=== PATIENT | female | born 1975 | race Caucasian/White ===

== ENCOUNTER 2022-08-17 12:12 | Emergency (ER) | payer MEDICAID ==
--- NOTE | 2022-08-17 12:22 | ERPHSYRPT ---
- History of Present Illness Time Seen by Provider: 08/17/22 12:21 Source: patient Exam Limitations: no limitations Physician History: This is a 47-year-old overweight white female who on 08/14/2022 was pushing her great nephew on a swing when she stepped back and tripped over stake in the ground twisting her right ankle and falling onto her outstretched left wrist. She has been icing it and there is been persistent pain in her left wrist and right foot and ankle with associated swelling and bruising of the right foot and ankle. She is able to bear weight but it hurts to do so and wants to be sure she has her has not fractured her ankle or her foot. Method of Injury: fell Occurred: days ago (3) Quality: constant, aching Lower Extremities Pain: foot: right, ankle: right, other: left Modifying Factors: Improves With: movement (Left wrist) Associated Symptoms: other (Can bear weight but hurts to do so) Allergies/Adverse Reactions: cefaclor [From Ceclor] Allergy (Intermediate, Verified 08/17/22 12:25) Rash Travel Risk - International Travel Have you traveled outside of the country in past 3 weeks: No - Coronavirus Screening Are you exhibiting any of the following symptoms?: No Close contact with a COVID-19 positive Pt in past 14-21 Days: No - Review of Systems Constitutional: No Symptoms Eyes: No Symptoms Ears, Nose, & Throat: No Symptoms Respiratory: No Symptoms Cardiac: No Symptoms Abdominal/Gastrointestinal: No Symptoms Genitourinary Symptoms: No Symptoms Musculoskeletal: Fall, Injury (Right foot and ankle, left wrist) Skin: No Symptoms Neurological: No Symptoms Psychological: No Symptoms Endocrine: No Symptoms Hematologic/Lymphatic: No Symptoms Immunological/Allergic: No Symptoms All Other Systems: Reviewed and Negative - Past Medical History Pertinent Past Medical History: Yes - Past Surgical History Past Surgical History: Yes - Nursing Vital Signs Nursing Vital Signs: Initial Vital Signs Temperature 97.3 F 08/17/22 12:18 Pulse Rate 92 H 08/17/22 12:18 Respiratory Rate 18 08/17/22 12:18 Blood Pressure 142/96 08/17/22 12:18 O2 Sat by Pulse Oximetry 94 L 08/17/22 12:18 Pain Scale Pain Intensity 8 - Physical Exam General Appearance: no apparent distress, alert, anxiety, obese Eyes, Ears, Nose, Throat Exam: normal ENT inspection, moist mucous membranes Neck Exam: normal inspection, non-tender, supple, full range of motion Cardiovascular/Respiratory Exam: chest non-tender, no respiratory distress Gastrointestinal/Abdominal Exam: non-tender Back Exam: normal inspection, normal range of motion, No CVA tenderness, No vertebral tenderness Hips Exam: bilateral: non-tender, normal inspection, normal range of motion, no evidence of injury Legs Exam: bilateral leg: non-tender, normal inspection, normal range of motion, no evidence of injury Knees Exam: bilateral knee: non-tender, normal inspection, normal range of motion, no evidence of injury Ankle Exam: right ankle: ecchymosis, soft tissue tenderness, swelling, left ankle: non-tender, normal inspection, normal range of motion, no evidence of injury Foot Exam: right foot: ecchymosis, soft tissue tenderness, swelling, left foot: non-tender, normal inspection, normal range of motion, no evidence of injury, other (Patient has tenderness left wrist. There is full range of motion and is neurovascularly intact. No deformity present) Neuro/Tendon Exam: normal sensation, normal motor functions, normal tendon functions, responds to pain, no evidence tendon injury Mental Status Exam: alert, oriented x 3, cooperative Skin Exam: normal color, warm, dry SpO2 Interpretation: normal O2 Delivery: Room Air - Course Nursing assessment & vital signs reviewed: Yes Ordered Tests: Active Orders 24 hr Category Date Time Status Adarsh Bandage Application -[facility] STAT Care 08/17/22 13:00 Active Crutches STAT Care 08/17/22 13:00 Active ANKLE (3 VIEWS) Stat Exams 08/17/22 12:27 Taken FOOT (MINIMUM 3 VIEWS) Stat Exams 08/17/22 12:27 Taken WRIST (MIN 3 VIEWS) Stat Exams 08/17/22 12:27 Taken - Progress Progress: improved, pain not gone completely Progress Note: 08/17/22 12:54 X-ray left wrist shows no acute fracture or dislocation. X-ray right ankle shows no acute fracture or dislocation. X-ray right foot shows minimally displaced fracture distal metatarsals #3 4 and 5 Counseled pt/family regarding: diagnosis, need for follow-up, rad results - Departure Departure Disposition: Home Clinical Impression: Metatarsal fracture Condition: Stable Critical Care Time: No Referrals: ABDELFATTAH,ROD, DPM [ACTIVE STAFF] - Follow up/PCP as directed Additional Instructions: Nonweightbearing. Use crutches. Ice pack/bath 3 times a day for the next 48 hours. Use ibuprofen 600 mg orally with food 3 times a day if there are no contraindications for you to take this medication. Elevate the right foot and ankle above the level of your heart. Wear the Adarsh wrap for compression. Follow-up with Dr. Granados (podiatry) by phone on 08/19/2022 to make arrangements for follow-up appointment. Another option is to follow-up with the [facility] orthopedic clinic Friday through Friday 8 AM to 10 AM. It is a walk-in clinic and you do not need an appointment to follow-up. Prescriptions: Oxycodone HCl/Acetaminophen [Percocet 5-325 mg Tablet] 1 each PO Q8H PRN PRN #8 tablet MDD 3 PRN Reason: Moderate To Severe Pain
[2022-08-17 13:09] VITALS: BP 138/72; PULSE 88; O2SAT 98
--- NOTE | 2022-08-17 20:12 | XRAY ---
Indication: Pain and bruising following fall. Comparison: None 3 view right ankle demonstrates anterior lateral soft tissue swelling and small plantar heel spur. No other bony, articular, or soft tissue abnormalities.
--- NOTE | 2022-08-17 20:12 | XRAY ---
Indication: Pain following fall. Comparison: None 3 view left wrist demonstrates two 5th metacarpal orthopedic screws and radiocarpal joint space narrowing. No other bony, articular, or soft tissue abnormalities.
--- NOTE | 2022-08-17 20:15 | XRAY ---
Indication: Pain and bruising following fall. Comparison: None 3 nonweightbearing views right foot demonstrates minimally displaced oblique fracture distal shaft 5th metatarsal, minimally angulated fracture distal shaft 4th metatarsal, nondisplaced fracture distal shaft 3rd metatarsal, and soft tissue swelling. Incidental small plantar spur. Remaining foot unremarkable.
== END 2022-08-17 13:27 | disposition home or self-care (01) ==
LOC: ED 12:12
DX: S92.331A Displaced fracture of third metatarsal bone, right foot, initial encounter for closed fracture (principal); S92.341A Displaced fracture of fourth metatarsal bone, right foot, initial encounter for closed fracture; S92.351A Displaced fracture of fifth metatarsal bone, right foot, initial encounter for closed fracture; W01.0XXA Fall on same level from slipping, tripping and stumbling without subsequent striking against object, initial encounter; M25.571 Pain in right ankle and joints of right foot; M25.532 Pain in left wrist; Z79.891 Long term (current) use of opiate analgesic
CPT/HCPCS: 73110; 73610; 73630; 99283

== ENCOUNTER 2024-12-12 17:19 | Emergency (ER) | payer MEDICAID ==
[2024-12-12 18:23] VITALS: TEMP 98.1
--- NOTE | 2024-12-12 18:29 | ERPHSYRPT ---
- History of Present Illness Time Seen by Provider: 12/12/24 18:26 Source: patient Exam Limitations: no limitations Patient Subjective Stated Complaint: pt fell in her living room from slipping on water and injured her left forearm above her wrist Triage Nursing Assessment: Pt was brought to the ER by her boyfriend, bradycardic, rates pain as 8/10, pulses normal, skin n/w/d, left wrist swollen and deformed, pt has a hx of a left broken wrist but she states that it feels like it's above the wrist, denies hitting head, denies LOC, denies N&V Physician History: 49-year-old female presents to our ED for evaluation of left wrist and distal forearm pain. Patient reports she was at home doing some cleaning. Patient slipped on water and landed onto her left outstretched arm. Injury occurred just prior to arrival. Pain described as an ache that is localized. No BHT or LOC. Cervical spine cleared clinically. Patient voices no other complaints or concerns at this time. Portions of this note were created with voice recognition technology. There may be grammatical, spelling, punctuation or sound alike errors Timing/Duration: today Severity: moderate Modifying Factors: Improves With: movement Associated Symptoms: denies symptoms Allergies/Adverse Reactions: cefaclor [From Ceclor] Allergy (Intermediate, Verified 12/12/24 18:24) Rash Hx Tetanus, Diphtheria Vaccination/Date Given: Yes Hx Influenza Vaccination/Date Given: Yes Hx Pneumococcal Vaccination/Date Given: No Travel Risk - International Travel Have you traveled outside of the country in past 3 weeks: No - Emerging Infectious Disease Are you exhibiting symptoms associated with any current EIDs: No - Review of Systems Constitutional: No Symptoms, No Fever, No Chills Eyes: No Symptoms Ears, Nose, & Throat: No Symptoms Respiratory: No Symptoms, No Cough, No Dyspnea Cardiac: No Symptoms, No Chest Pain, No Edema, No Syncope Abdominal/Gastrointestinal: No Symptoms, No Abdominal Pain, No Nausea, No Vomiting, No Diarrhea Genitourinary Symptoms: No Symptoms, No Dysuria Musculoskeletal: No Symptoms, No Back Pain, No Neck Pain Skin: No Symptoms, No Rash Neurological: No Symptoms, No Dizziness, No Focal Weakness, No Sensory Changes Psychological: No Symptoms Endocrine: No Symptoms Hematologic/Lymphatic: No Symptoms Immunological/Allergic: No Symptoms All Other Systems: Reviewed and Negative - Past Medical History Pertinent Past Medical History: Yes - Past Surgical History Past Surgical History: Yes Other Surgical History: hysterectomy. spleen. left hand - Female History Hx Now: No (hysterectomy) - Social History Smoking Status: Current every day smoker How long have you smoked: years Exposure to second hand smoke: Yes Drug Use: none - Social Determinants of Health Will the patient participate in the screening: Yes Do you worry about a steady place to live?: No Do you have any problems with any of the following?: No known problems In the past 12 months,have you had to go without utilities?: No Transportation Issues: No Has anyone in your support network made you feel unsafe?: No Have you or anyone in your house had to go w/o enough food: No - Nursing Vital Signs Nursing Vital Signs: Initial Vital Signs Temperature 98.1 F 12/12/24 18:14 Pulse Rate 52 L 12/12/24 18:14 Blood Pressure 140/61 12/12/24 18:14 O2 Sat by Pulse Oximetry 99 12/12/24 18:14 Pain Scale Pain Intensity 8 - Physical Exam General Appearance: no apparent distress, alert Eye Exam: PERRL/EOMI, eyes nml inspection Ears, Nose, Throat Exam: normal ENT inspection, TMs normal, pharynx normal, moist mucous membranes Neck Exam: normal inspection, non-tender, supple, full range of motion Respiratory Exam: normal breath sounds, lungs clear, airway intact, No respiratory distress Cardiovascular Exam: regular rate/rhythm, normal heart sounds, normal peripheral pulses Gastrointestinal/Abdomen Exam: soft, normal bowel sounds, No tenderness, No mass Back Exam: normal inspection, normal range of motion, No CVA tenderness, No vertebral tenderness Extremity Exam: normal inspection, normal range of motion, pelvis stable, other (Left wrist limited range of motion secondary to pain. There is some bruising on the volar aspect of her left distal forearm just proximal to the wrist. The involved digits neurovascular tact distally compartments are soft cap refill less than 2 seconds. Overlying soft tissue intact. No open or d) Neurologic Exam: alert, oriented x 3, cooperative, normal mood/affect, sensation nml, No motor deficits Skin Exam: normal color, warm, dry, No rash Lymphatic Exam: No adenopathy SpO2 Interpretation: normal SpO2: 99 O2 Delivery: Room Air - Course Nursing assessment & vital signs reviewed: Yes - Radiology Exams Wrist X-ray Interpretation: Teleradiologist Report (Distal radius fracture, metaphysis) Forearm X-ray Interpretation: Teleradiologist Report (Distal radius fracture, metaphysis) Ordered Tests: Active Orders 24 hr Category Date Time Status FOREARM Stat Exams 12/12/24 18:40 Completed WRIST (MIN 3 VIEWS) Stat Exams 12/12/24 18:40 Completed - Progress Progress: improved Progress Note: 49-year-old female presents to emergency department for evaluation of pain to her left wrist post fall. Physical exam reveals some swelling and tenderness at the left wrist near the distal radius. X-ray confirms an impacted fracture of the metaphysis of the left distal radius. The fracture is closed. The involved extremities neurovascular intact distally compartments are soft cap refill less than 2 seconds. Patient received Toradol for pain control. Patient's involved extremity was placed in a sugar-tong splint and sling. Patient referred to orthopedic clinic for follow-up. No indication for further workup at this time. Patient has no other complaints. Portions of this note were created with voice recognition technology. There may be grammatical, spelling, punctuation or sound alike errors Complexity of problem addressed is moderate acute complicated no critical care time. Complex of data reviewed and analyzed is moderate. Test ordered test reviewed results analyzed and correlated clinically with history and physical exam. Risk of complication and or risk of morbidity/mortality of patient management is moderate. A prescription for Toradol forwarded to patient's pharmacy. Vital stable. Time spent to discharge patient approximately 15 minutes. Plan of care established for shared decision making. No social determinants of health present to impede follow-up. Portions of this note were created with voice recognition technology. There may be grammatical, spelling, punctuation or sound alike errors 12/12/24 20:25 12/12/24 20:26 Counseled pt/family regarding: diagnosis, need for follow-up, rad results - Departure Departure Disposition: Home Clinical Impression: Fall, Wrist pain, Distal radius fracture, left Condition: Stable Critical Care Time: No Referrals: DOCTOR,NO FAMILY [Primary Care Provider] - Follow up/PCP as directed Additional Instructions: Discharge/Care Plan BRY GREGG was seen on 12/12/24 in the Emergency Room. The patient was c ounseled regarding Diagnosis,Lab results, Imaging studies, need for follow up and when to return to the Emergency Room. Prescriptions given: Discharge Note I have spoken with the patient and/or caregivers. I have explained the patient's condition, diagnosis and treatment plan based on the information available to me at this time. I have answered the patient's and/or caregiver's questions and addressed any concerns. The patient and/or caregivers have as good understanding of the patient's diagnosis, condition and treatment plan as can be expected at this point. The vital signs have been stable. The patient's condition is stable and appropriate for discharge from the emergency department. The patient will pursue further outpatient evaluation with the primary care physician or other designated or consulting physician as outlined in the discharge instructions. The patient and/or caregivers are agreeable to this plan of care and follow-up instructions have been explained in detail. The patient and/or caregivers have received these instruction. The patient/and or caregivers are aware that any significant change in condition or worsening of symptoms should prompt an immediate return to this or the closest emergency department or call 911. Prescriptions: Ketorolac Trometh 10 mg Tab [TORAdol 10 MG TABLET] 10 mg PO TID 5 Days #15 tablet Outpatient Orders: Ortho Referral Time Frame: 1 Day, Facility: [facility], Locatio n: ORTHO CLINIC
[2024-12-12 19:33] VITALS: BP 121/73; PULSE 51
--- NOTE | 2024-12-12 20:04 | XRAY ---
CLINICAL HISTORY: pain/fall COMPARISON: No prior studies available for comparison. TECHNIQUE: X-ray images of the left forearm were obtained in anteroposterior (AP) and lateral projections. FINDINGS: Bone Structure: Impacted extraarticular fracture of distal radius metaphysis with no significant displacement. Otherwise, bone structure is normal and aligned. No evidence of dislocation. Two in-place screws fixing the 5th metacarpal shaft. Joint Spaces: Elbow and wrist joint spaces are normal. No evidence of joint effusion or subluxation. Soft Tissues: Periarticular soft tissue edema related to wrist. No soft tissue calcifications or foreign bodies noted. Additional Findings: No signs of osteoarthritis, periosteal reaction, or other abnormalities. IMPRESSION: Impacted extraarticular fracture of distal radius metaphysis with no significant displacement. Disclaimer: A subtle bone abnormality or fracture may not be readily apparent on X-rays, thus clinical correlation and further imaging, including follow-up CT, MRI, or follow-up X-rays, are advised as needed. Electronically Signed by: Mona Lai MD. (12/12/2024 19:59:33 EST)
--- NOTE | 2024-12-12 20:06 | XRAY ---
CLINICAL HISTORY: pain/fall COMPARISON: No prior studies are available for comparison. TECHNIQUE: X-ray images of the left wrist were obtained in anteroposterior (AP), lateral, and oblique projections. FINDINGS: Bone Structure: Impacted extraarticular fracture of distal radius metaphysis with no significant displacement. Other bone structures are normal and aligned. No evidence of dislocation. No osseous lesions or abnormalities identified. Two in-place screws are transfixing the 5th metacarpal shaft. Joint Spaces: Joint spaces are normal. No evidence of joint subluxation. Soft Tissues: Periarticular soft tissue edema related to wrist. No soft tissue calcifications or foreign bodies noted. Additional Findings: No signs of osteoarthritis, bone spurs, lytic or sclerotic lesions. IMPRESSION: 1. Impacted extraarticular fracture of distal radius metaphysis with no significant displacement. 2. Two in place screws are transfixing the 5th metacarpal shaft. Disclaimer: A subtle bone abnormality or fracture may not be readily apparent on X-rays, thus clinical correlation and further imaging including follow-up CT, MRI, or follow-up X-rays are advised as needed. Electronically Signed by: Mona Lai MD. (12/12/2024 20:01:11 EST)
[2024-12-12 20:24] VITALS: O2SAT 99
[2024-12-12] MEDS ORDERED: TORAdol 30 mg Injection ONE (20:28)
[2024-12-12] MEDS: TORAdol 30 mg Injection IM ONE (20:29)
== END 2024-12-12 20:57 | disposition home or self-care (01) ==
LOC: ED 17:19
DX: S52.502A Unspecified fracture of the lower end of left radius, initial encounter for closed fracture (principal); W01.0XXA Fall on same level from slipping, tripping and stumbling without subsequent striking against object, initial encounter; Y93.E9 Activity, other interior property and clothing maintenance; Y92.008 Other place in unspecified non-institutional (private) residence as the place of occurrence of the external cause; M25.532 Pain in left wrist; Z79.899 Other long term (current) drug therapy; Z72.0 Tobacco use
CPT/HCPCS: 29125; 73090; 73110; 96372; 99283; J1885

== ENCOUNTER 2025-08-05 23:22 | Emergency (ER) | payer OTHER ==
[2025-08-05 23:40] VITALS: TEMP 98.5
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
[2025-08-05] MEDS ORDERED: DUONEB 0.5-3 MG/3 ml Neb IH ONE ×2 (23:46→23:55)
[2025-08-05 23:54] LABS: BASOPHIL % 0.5 % (0.1-1.2); Basophil (Absolute #) 0.07 x10^3/uL (0.01-0.08); Eosinophil (Absolute #) 0 x10^3/uL (0.04-0.36); Hematocrit 39.9 % (34.1-44.9); Hemoglobin 12.1 g/dL (11.2-15.7); IMMATURE GRAN # 0.05 x10^3u/L (0.001-0.031); IMMATURE GRAN % 0.3 % (0.001-0.429); Lymphocyte (Absolute #) 2.81 x10^3/uL (1.18-3.74); Mean Corpuscular Hemoglobin 25.9 pg (25.6-32.2); Mean Corpuscular Hgb Concent. 30.3 g/dL (32.2-35.5); Monocyte (Absolute #) 0.92 x10^3/uL (0.24-0.86); NUCLEATED RBC # 0.00 x10^3u/L (0.00-0.012); NUCLEATED RBC % 0.0 % (0.00-0.2); Platelet Count 411 x10^3/uL (182-369); Red Blood Count 4.68 x10^6/uL (3.93-5.22); White Blood Count 14.6 x10^3/uL (3.98-10.04)
[2025-08-05] MEDS: DUONEB 0.5-3 MG/3 ml Neb IH ONE (23:55)
[2025-08-06 00:07] LABS: Calcium 8.9 mg/dL (8.4-10.2); Carbon Dioxide 25 mmol/L (22-30); Creatinine 1 0.79 mg/dL (0.52-1.04); EST GLOMERULAR FILTRATION RATE 90.0 ML/MIN; Glucose 150 mg/dL (74-106); Potassium 4.4 mmol/L (3.5-5.1); SGOT/AST 17 U/L (14-36); SGPT/ALT 11 U/L (0-35); Total Protein 7.1 g/dL (6.3-8.2)
[2025-08-06] MEDS ORDERED: Sterile H2O 10 ml IJ ONE (00:07)
[2025-08-06] MEDS: solu-MEDROL 125 MG, Sterile H2O 10 ml 2 ML IV ONE (00:09)
--- NOTE | 2025-08-06 00:09 | XRAY ---
Indication: Cough. Comparison: None Portable chest demonstrates normal heart and lungs. Bony thorax intact. No acute findings.
[2025-08-06 00:24] LABS: NT PRO BNPII 45.7 pg/mL (<300)
[2025-08-06] MEDS ORDERED: TORAdol 30 mg Injection ONE (00:25)
[2025-08-06] MEDS: TORAdol 30 mg Injection IV ONE (00:26)
[2025-08-06 00:30] LABS: INFLUENZA A NEGATIVE (NEGATIVE); INFLUENZA B NEGATIVE (NEGATIVE); RESPIRATORY SYNCTIAL VIRUS NEGATIVE (NEGATIVE); SARS-CoV-2 Xpert Express NEGATIVE (NEGATIVE)
[2025-08-06 01:37] LABS: Glucose, Urine Negative (Negative); Protein,Urine Dip Negative (Negative); RBC 0-2 /HPF (0-5)
[2025-08-06 02:02] VITALS: BP 131/79; PULSE 95; RESP 23
[2025-08-06 02:08] VITALS: O2SAT 96
== END 2025-08-06 02:23 | disposition home or self-care (01) ==
LOC: ED 23:22
DX: J44.1 Chronic obstructive pulmonary disease with (acute) exacerbation (principal); R05.1 Acute cough; Z79.52 Long term (current) use of systemic steroids; Z79.899 Other long term (current) drug therapy; Z72.0 Tobacco use